=== PATIENT | male | born 1995 | race Caucasian/White ===

== ENCOUNTER 2021-03-29 20:14 | Emergency (ER) | payer OTHER ==
[2021-03-29 20:20] VITALS: BP 133/84; PULSE 77; RESP 16; TEMP 98.3
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
== END 2021-03-29 21:15 | disposition home or self-care (01) ==
LOC: EC 20:14
DX: T75.1XXA Unspecified effects of drowning and nonfatal submersion, initial encounter (principal)
CPT/HCPCS: 71046; 99284